=== PATIENT | female | born 1955 | race Caucasian/White ===

== ENCOUNTER → 2016-10-31 | Outpatient (CLI) | payer MEDICARE ==
[~2016-10-31] MED LIST: COZAAR PO; DIAZEPAM PO; FISH OIL 1,0001 CAP PO; FISH OIL 1,001000 M1 PO; FISH OIL 1,001000 MG PO; HYDROCODONE-APA1 T30 PO; KLONOPIN0.5 MG PO; LIPITOR PO; LIPITOR20 MG PO; LORTAB 7.5-3251 EACH PO; LOTENSIN20 MG PO; MEVACOR20 M1 PO; NEURONTIN PO; NIASPAN PO; OXAPROZIN600 MG PO; PRAVACHOL20 MG; SARAFEM20 MG PO; VITAMIN D-32000 UNI1 PO; ZESTORETIC 10/11 TAB PO
--- NOTE | ~2016-10-31 | BD1 ---
[facility] A Service of [facility] [place] [facility] RADIOLOGY TEXT RESULTS PATIENT: LUTHER ZENDEJAS LOCATION: [facility] : 53 UNIT #: [id number] AGE: [address]: Miguel Mcmillan MD SEX: F ORDER DR: [id number] [address] [address] [id number] O MR#: [id number] Acc #: [id number] NAME: LUTHER ZENDEJAS : 1955 SEX: F STUDY DATE/TIME: 10/31/2016 9:11 UNIT: [facility] ROOM: STUDY DESCRIPTION: Dexa Bone Dens 1+ Site Attending Physician: Miguel Mcmillan M.D. Referring Physician: Miguel Mcmillan M.D. Ordering Physician: Miguel Mcmillan M.D. Primary Care Physician: Miguel Mcmillan M.D. MEDICAL IMAGING REPORT This report is preliminary unless electronic signature is present. EXAM DXA scan 10/31/2016. HISTORY Status post menopause with no hormone replacement therapy. Osteopenia. Arthritis. Hypertension with blood pressure medication for 1 year. Smoking history for 30 years. FINDINGS Bone mineral density in the distal left forearm radius was 0.735 g/cm2 which is 1.7 standard deviations below the mean when compared to the young adult reference population, which is characteristic of osteopenia. This is 0.6 standard deviations below the mean when compared to the age-matched population. Bone mineral density in the left femoral neck was 0.794 g/cm2 which is 1.8 standard deviations below the mean when compared to the young adult reference population, which is characteristic of osteopenia. This is 0.6 standard deviations below the mean when compared to the age-matched population. Bone mineral density in the right femoral neck was 0.862 g/cm2 which is 1.3 standard deviations below the mean when compared to the young adult reference population, which is characteristic of osteopenia. This is 0.1 standard deviations below the mean when compared to the age-matched population. IMPRESSION Bone mineral density in the left forearm and the hips bilaterally characteristic of osteopenia. Dictated by... Ricky Maciel M.D. THIS IS AN ELECTRONICALLY VERIFIED REPORT Ricky Maciel M.D. at 11/01/2016 7:34 AM [facility] A Service of [facility] RADIOLOGY TEXT RESULTS PATIENT: LUTHER ZENDEJAS LOCATION: [facility] : 53 UNIT #: [id number] AGE: [address]: Miguel Mcmillan MD SEX: F ORDER DR: Kraig TD: 10/31/2016 13:25 JOB #: [id number] MEDICAL IMAGING REPORT Page 1 of 1
--- NOTE | ~2016-10-31 | CT2 ---
[facility] A Service of [facility] RADIOLOGY TEXT RESULTS PATIENT: LUTHER ZENDEJAS LOCATION: [facility] : 53 UNIT #: [id number] AGE: [address]: Miguel Mcmillan MD SEX: F ORDER DR: [id number] [address] [address] [id number] O MR#: [id number] Acc #: [id number] NAME: LUTHER ZENDEJAS : 1955 SEX: F STUDY DATE/TIME: 10/31/2016 9:20 UNIT: [facility] ROOM: STUDY DESCRIPTION: CT Abd and Pelv W Cont Attending Physician: Miguel Mcmillan M.D. Referring Physician: Miguel Mcmillan M.D. Ordering Physician: Miguel Mcmillan M.D. Primary Care Physician: Miguel Mcmillan M.D. MEDICAL IMAGING REPORT This report is preliminary unless electronic signature is present. EXAM CT of the abdomen and pelvis with contrast INDICATION Prior episode of pancreatitis. Patient is currently experiencing pain in right upper abdomen similar to the pain from the prior episode of pancreatitis. TECHNIQUE CT scan of the abdomen and pelvis was performed following the administration of oral and IV contrast. Coronal and sagittal reformatted images were obtained. This CT exam was performed with one or more of the following radiation dose reduction techniques: automatic exposure control, adjustment of mA and/or kV according to patient size, and iterative reconstruction. COMPARISON 09/18/2015 FINDINGS The lung bases are clear. Interval cholecystectomy. The liver is unremarkable. The spleen is unremarkable. The kidneys are unremarkable. The adrenal glands are unremarkable. The pancreas is unremarkable. No inflammatory stranding around the pancreas to suggest acute pancreatitis. No biliary ductal dilatation. PELVIS: Hysterectomy. The colon is unremarkable. The appendix is normal. Bone windows show postoperative changes of the lumbar spine. IMPRESSION 1. Interval cholecystectomy. 2. No evidence for acute pancreatitis. [facility] A Service [facility] RADIOLOGY TEXT RESULTS PATIENT: LUTHER ZENDEJAS LOCATION: [facility] : 53 UNIT #: [id number] AGE: [address]: Miguel Mcmillan MD SEX: F ORDER DR: 3. No biliary ductal dilatation. Dictated by... Toni Enamorado M.D. THIS IS AN ELECTRONICALLY VERIFIED REPORT Toni Enamorado M.D. at 10/31/2016 4:36 PM Loan TD: 10/31/2016 14:01 JOB #: [id number] MEDICAL IMAGING REPORT Page 1 of 1
[2016-10-31 08:30] LABS: POC - CREATININE 0.97 mg/dL (0.44-1.03); POC - GFR >60.0 mL/min (>60)
== END | disposition home or self-care (01) ==
LOC: SCT 08:17
PROVIDERS: Family Medicine
DX: M81.0 Age-related osteoporosis without current pathological fracture (principal); K86.1 Other chronic pancreatitis; Z90.49 Acquired absence of other specified parts of digestive tract
CPT/HCPCS: 74177; 77080; 82565; Q9967

== ENCOUNTER → 2016-11-06 | Outpatient (CLI) | payer MEDICARE ==
--- NOTE | ~2016-11-06 | CT137 ---
[facility] A Service of [facility] RADIOLOGY TEXT RESULTS PATIENT: LUTHER ZENDEJAS LOCATION: [facility] : 53 UNIT #: [id number] AGE: [address]: Miguel Mcmillan MD SEX: F ORDER DR: [id number] [address] [facility]. [place], [place] [address] [id number] O MR#: [id number] Acc #: [id number] NAME: LUTHER ZENDEJAS : 1955 SEX: F STUDY DATE/TIME: 11/06/2016 8:26 UNIT: [facility] ROOM: STUDY DESCRIPTION: CT Lung Screening annual Attending Physician: Miguel Mcmillan M.D. Referring Physician: Miguel Mcmillan M.D. Ordering Physician: Miguel Mcmillan M.D. Primary Care Physician: Miguel Mcmillan M.D. MEDICAL IMAGING REPORT This report is preliminary unless electronic signature is present EXAM CT chest INDICATION Lung cancer screening. 61-year-old female is a former smoker with a 75 pack year history. 11-year smoking cessation. TECHNIQUE CT of the thorax without contrast. Coronal and sagittal reconstructions were obtained. The exam was performed as a low-dose chest CT utilizing lung cancer screening protocol. This CT exam was performed with one or more of the following radiation dose reduction techniques: automatic exposure control, adjustment of mA and/or kV according to patient size, and iterative reconstruction. CTDI volume 2.6 mGy. DLP 85.07 mGy-cm. COMPARISON Lung cancer screening, 09/14/2015 FINDINGS This is a negative lung cancer screening. No suspicious pulmonary findings are identified. No focal consolidation. Central airways are patent. No pathologically enlarged mediastinal or hilar lymph nodes. No thoracic aortic aneurysm or dissection. No pericardial or pleural effusion. IMPRESSION Negative lung cancer screening. ACR Lung-RADS classification 1: Negative examination. [facility] A Service [facility] RADIOLOGY TEXT RESULTS PATIENT: LUTHER ZENDEJAS LOCATION: [facility] : 53 UNIT #: [id number] AGE: [address]: Miguel Mcmillan MD SEX: F ORDER DR: RECOMMENDATIONS Annual lung cancer screening with a low-dose chest CT until 15 years of smoking cessation. Dictated by... Michael Chakraborty M.D. THIS IS AN ELECTRONICALLY VERIFIED REPORT Michael Chakraborty M.D. at 11/06/2016 1:00 PM FERNANDA/giselle TD: 11/06/2016 10:47 JOB #: [id number] MEDICAL IMAGING REPORT Page 1 of 1 COPY
== END | disposition home or self-care (01) ==
LOC: CCAT 08:03
DX: Z87.891 Personal history of nicotine dependence (principal)
CPT/HCPCS: G0297